=== PATIENT | female | born 1990 | race American Indian/Alaskan Native ===

== ENCOUNTER 2019-05-05 17:48 | Emergency (ER) | payer MEDICAID ==
--- NOTE | 2019-05-05 18:11 | Event Note ---
ED Screening Note Date of service: 05/05/19 Time: 18:10 ED Screening Note: 28 y o female presents with right shoulder pain from reaching back to her car seat This initial assessment/diagnostic orders/clinical plan/treatment(s) is/are subject to change based on patients health status, clinical progression and re- assessment by fellow clinical providers in the ED. Further treatment and workup at subsequent clinical providers discretion. Patient/guardian urged not to elope from the ED as their condition may be serious if not clinically assessed and managed. Initial orders include: xr shoulder
--- NOTE | 2019-05-05 19:06 | XRay Report ---
RIGHT SHOULDER 2 VIEWS INDICATION / CLINICAL INFORMATION: pain,deformi. COMPARISON: None available. FINDINGS: Humeral head is dislocated inferiorly and anteriorly with respect to the glenoid fossa. I see no appr eciable fracture. Signer Name: Van Thomas MD Signed: 05/05/2019 7:02 PM Workstation Name: [id number]
[2019-05-05] MEDS ORDERED: NORCO 5/325 PO ONE (19:10)
[2019-05-05] MEDS ORDERED: NACL 0.9% 1000 ML 1,000 ML IV ONE (20:01)
[2019-05-05] MEDS ORDERED: KETALAR IV ONE (20:02)
[2019-05-05] MEDS ORDERED: DIPRIVAN 10 MG/ML IV ONE (20:02)
--- NOTE | 2019-05-05 20:06 | Emergency Department Report ---
HPI - General Chief Complaint: Shoulder Injury Time Seen by Provider: 05/05/19 18:09 - HPI HPI: 28-year-old female presents to the emergency department with right shoulder pain and suspicion of a right shoulder dislocation. She was sitting in the front seat and reaching into her back seat of the car when she suddenly developed a sharp pain that she says was consistent with previous shoulder dislocations. She says she has dislocated it about 4-5 times in the past. She has never seen an orthopedist. No other past medical history. She did not take anything for her symptoms prior to arrival today. ED Past Medical Hx - Past Medical History Previous Medical History?: Yes Hx Hypertension: Yes - Surgical History Past Surgical History?: No - Social History Smoking Status: Current Every Day Smoker Substance Use Type: None ED Review of Systems ROS: Stated complaint: DISLOCATE RT ARM Other details as noted in HPI Comment: All other systems reviewed and negative Constitutional: denies: chills, fever Eyes: denies: eye pain, vision change ENT: denies: ear pain, throat pain Respiratory: denies: cough, shortness of breath Cardiovascular: denies: chest pain, palpitations Gastrointestinal: denies: abdominal pain, vomiting Genitourinary: denies: dysuria, discharge Musculoskeletal: arthralgia. denies: joint swelling Skin: denies: rash, lesions Neurological: denies: numbness, paresthesias Physical Exam - Physical Exam Vital Signs: Vital Signs 05/05/19 05/05/19 18:12 19:25 Temperature 99.6 F Pulse Rate 91 H Respiratory 18 18 Rate Blood Pressure 150/97 O2 Sat by Pulse 98 Oximetry Physical Exam: GENERAL: The patient is well-developed well-nourished. HENT: Normocephalic. Atraumatic. Patient has moist mucous membranes. EYES: Extraocular motions are intact. NECK: Supple. Trachea is midline. CHEST/LUNGS: Clear to auscultation. There is no respiratory distress noted. HEART/CARDIOVASCULAR: Regular. There is no tachycardia. There is no murmur. ABDOMEN: Abdomen is soft, nontender. Patient has normal bowel sounds. There is no abdominal distention. SKIN: Skin is warm and dry. NEURO: The patient is awake, alert, and oriented. The patient is cooperative. The patient has no focal neurologic deficits. Normal speech. MUSCULOSKELETAL: There is some tenderness to palpation to the right shoulder. She is holding her right arm in internal rotation against her body. Decreased range of motion of the right upper extremity secondary to right shoulder pain. Radial pulse +2 over 4 and capillary refill less than 2 seconds C affected right upper extremity. ED Course Vital Signs 05/05/19 05/05/19 18:12 19:25 Temperature 99.6 F Pulse Rate 91 H Respiratory 18 18 Rate Blood Pressure 150/97 O2 Sat by Pulse 98 Oximetry - Moderate Sedation Indications: fracture/dislocation redu ASA Class: I Mallampati Airway Score: 1 Time of Last PO Intake: 12:00 Preparation: equipment monitor phototypesetting applied, pulse oximeter, capnometry used, supplemental O2 applied, suction/airway equipment at bedside, IV secured Ketamine: IV Ketamine Dose: 50 IV Propofol Dose (mgs): 60 Complications: none Patient Tolerated Procedure: well - Orthopedic Joint Reduction Joint #1 Consent Obtained: written consent Time Out Performed: Yes Side: right Joint Reduction Location: shoulder Analgesia: moderate sedation Shoulder Technique Used (if applicable): external rotation Post-Reduction Neuro Exam: intact Post-Reduction Vascular Exam: intact Post Reduction X-Ray Obtained: Yes Post Reduction X-Ray Results: reduced Splint Applied: Yes Patient Tolerated Procedure: well ED Medical Decision Making - Radiology Data Radiology results: image reviewed interpreted by me: Initial right shoulder x-ray shows anterior inferior dislocation of the humeral head. Postreduction right shoulder x-ray shows appropriate reduction of the humeral head into the glenohumeral joint - Medical Decision Making This patient presents with right shoulder pain and a suspected dislocation after trying to reach to the back of her car from the front seat. X-ray does confirm a dislocation without fracture. Moderate sedation was performed and I was able to reduce the shoulder dislocation. She was neurovascularly intact both before and after the procedure. Post procedure x-ray shows appropriate reduction of the dislocation. The patient was monitored until she was back at her baseline mental status, awake, alert. She was placed in a shoulder immobilizer and instructed to follow-up with an orthopedist regarding both this shoulder dislocation and her history of recurrent shoulder dislocations. Vital signs stable throughout ED course. She did have some hypertension, and has a history of hypertension, but does have medication and primary care follow-up. - Differential Diagnosis shoulder dislocation, fracture, rotator cuff tear Critical Care Time: No Critical care attestation.: If time is entered above; I have spent that time in minutes in the direct care of this critically ill patient, excluding procedure time. ED Disposition Clinical Impression: Elevated blood pressure reading Dislocation of right shoulder joint Qualifiers: Encounter type: initial encounter Qualified Code(s): S43.004A - Unspecified dislocation of right shoulder joint, initial encounter Disposition: - TO HOME OR SELFCARE Is pt being admited?: No Condition: Stable Instructions: Shoulder Dislocation (ED), Moderate Sedation (ED) Additional Instructions: Please follow up with orthopedist regarding your shoulder dislocation and your history of recurrent dislocations. I suggest remaining in the shoulder immobilizer until follow-up with the orthopedist. Return to the emergency Department with any worsening of your symptoms or any acute distress. Referrals: PRIMARY CAREMD [Primary Care Provider] - 2-3 Days JEFFERY CROWE MD [Staff Physician] - 2-3 Days Time of Disposition: 21:34
--- NOTE | 2019-05-05 21:12 | XRay Report ---
RIGHT SHOULDER 1 VIEW INDICATION / CLINICAL INFORMATION: post reduction attempt. COMPARISON: Earlier exam today FINDINGS: Humeral head is now normally located in the glenoid fossa. No appreciable fracture. Signer Name: Van Thomas MD Signed: 05/05/2019 9:07 PM Workstation Name: [id number]
[2019-05-05 21:41] VITALS: BP 149/103
== END 2019-05-05 22:22 | disposition home or self-care (01) ==
LOC: ED 17:48
DX: S43.004A Unspecified dislocation of right shoulder joint, initial encounter (principal); I10 Essential (primary) hypertension; F17.200 Nicotine dependence, unspecified, uncomplicated; V89.2XXA Person injured in unspecified motor-vehicle accident, traffic, initial encounter; Y93.89 Activity, other specified; Y92.410 Unspecified street and highway as the place of occurrence of the external cause; Y99.8 Other external cause status
CPT/HCPCS: 23650; 73020; 73030; 99283; J2704; J7030